=== PATIENT | female | born 1960 | race Caucasian/White ===

== ENCOUNTER → 2017-12-10 | Outpatient (CLI) | payer OTHER ==
[2017-12-10 17:03] LABS: Basophils # (A) 0.1 k/uL (0-0.2); Basophils % (A) 1 %; Eosinophils # (A) 0.6 k/uL (0-0.7); Eosinophils % (A) 5 %; HCT 47.7 % (34.0-46.0); HGB 15.7 gm/dL (11.4-16.0); Lymphocytes # (A) 2.8 k/uL (1.0-4.8); Lymphocytes % (A) 25 %; MCH 28.8 pg (25.0-35.0); MCV 87.1 fL (80.0-100.0); Mean Platelet Volume 6.9; Monocytes # (A) 0.6 k/uL (0-1.0); Monocytes % (A) 6 %; Neutrophils # (A) 6.8 k/uL (1.3-7.7); Neutrophils % (A) 61 %; Platelet Count 250 k/uL (150-450); RBC 5.47 m/uL (3.80-5.40); RDW 13.7 % (11.5-15.5); WBC 11.1 k/uL (3.8-10.6)
[2017-12-10 17:55] LABS: Total Eosinophil Count 504 #EOS/uL (150-300)
== END | disposition home or self-care (01) ==
LOC: LABWHC1 16:38
PROVIDERS: ATTEND Allergy & Immunology
DX: T50.995A Adverse effect of other drugs, medicaments and biological substances, initial encounter (principal); J41.0 Simple chronic bronchitis
CPT/HCPCS: 36415; 82785; 85008; 85025